=== PATIENT | female | born 1975 ===

== ENCOUNTER 2016-11-05 15:36 | Emergency (ER) | payer SELFPAY ==
[~2016-11-05] VITALS: Ht 149.9 cm; Wt 63.1 kg
[2016-11-05 17:50] VITALS: BP 128/95
== END 2016-11-05 17:52 | disposition home or self-care (01) ==
LOC: ED 15:36
DX: Z76.0 Encounter for issue of repeat prescription (principal); E89.0 Postprocedural hypothyroidism; Z79.899 Other long term (current) drug therapy